=== PATIENT | male | born 1990 | race Caucasian/White ===

== ENCOUNTER 2017-10-28 18:38 | Emergency (ER) | payer OTHER ==
[~2017-10-28] VITALS: Ht 193 cm; Wt 93.9 kg
[~2017-10-28 18:38] MED LIST: CEPH500 PO; CYCL10 PO; HYDACE5 PO; IBUP600 PO; NAPR500 PO; PROM25 PO; Zithromax250 MG PO
== END 2017-10-28 19:51 | disposition home or self-care (01) ==
LOC: ER 18:38
DX: S90.32XA Contusion of left foot, initial encounter (principal); F90.9 Attention-deficit hyperactivity disorder, unspecified type; F32.9 Major depressive disorder, single episode, unspecified; F17.200 Nicotine dependence, unspecified, uncomplicated; W22.8XXA Striking against or struck by other objects, initial encounter
CPT/HCPCS: 73630; 99283

== ENCOUNTER → 2019-02-14 | Outpatient (CLI) | payer OTHER | END | disposition home or self-care (01) | LOC: LAB EV 15:10 → LAB SHORT 15:10 | DX: S81.802A Unspecified open wound, left lower leg, initial encounter (principal) | CPT/HCPCS: 87070; 87075; 87205 ==